=== PATIENT | female | born 1990 ===

== ENCOUNTER 2024-08-31 15:08 | Emergency (ER) | payer SELFPAY ==
[2024-08-31 15:15] VITALS: BP 124/71; PULSE 87; RESP 20; TEMP 36.7; O2SAT 100
--- NOTE | 2024-08-31 15:17 | ECG_ITS ---
Test Date: 2024-08-31 15:22:13 Measurements Intervals [place] Rate: 73 P: 61 NE: 147 QRS: 41 QRSD: 78 T: 25 QT: 366 QTc: 406 Interpretive Statements SINUS RHYTHM NONSPECIFIC T-WAVE ABNORMALITY No previous ECG available for comparison Electronically Signed On 08-31-2024 21:47:28 ONLINE PROGRAM COORDINATOR by Joao Montiel M.D.
--- NOTE | 2024-08-31 16:49 | PC.NURSE ---
Pt had family member approach intake desk to inform she will be taken to another hospital due to wait time. Pt ambulated out with 7 friends.
== END 2024-08-31 18:12 | disposition left against medical advice (07) ==
LOC: ANHED 17:43
DX: R51.9 Headache, unspecified (principal); R07.9 Chest pain, unspecified
CPT/HCPCS: 93005; 99199